=== PATIENT | female | born 1995 | race Caucasian/White ===

== ENCOUNTER 2023-02-16 13:57 | Emergency (ER) | payer MEDICAID ==
[~2023-02-16] VITALS: Ht 167.6 cm; Wt 86.2 kg
[2023-02-16 14:06] VITALS: BP_SYST 140
--- NOTE | 2023-02-16 14:14 | NUR ---
Placed in room 8 . Placed on phototypesetting equipment monitor, blood pressure machine and pulse oximeter. To gown for exam. Side rails up. Report given to
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
--- NOTE | 2023-02-16 14:22 | NUR ---
MD DR RAE AT BEDSIDE
[2023-02-16] MEDS ORDERED: LIDOCAINE 1% 10 MG/ML, 20 ML MDV INJ ONE (14:30)
[2023-02-16] MEDS ORDERED: BACITRACIN 1 GM OINT TP ONE ×2 (14:30→15:19)
[2023-02-16] MEDS ORDERED: IBUPROFEN 800 MG TABLET PO ONE (14:45)
--- NOTE | 2023-02-16 15:20 | NUR ---
[place] [facility] AT BEDSIDE INTERVIEWING PT
[2023-02-16 15:57] VITALS: BP_SYST 140
--- NOTE | 2023-02-16 16:01 | NUR ---
Patient given written and verbal discharge instructions and verbalizes understanding. ER MD DR RAE discussed with patient the results and treatment provided. Patient in stable condition. ID arm band removed. Patient educated on pain management and to follow up with PMD. Pain Scale . Opportunity for questions provided and answered. Medication side effect fact sheet provided.
== END 2023-02-16 16:01 | disposition home or self-care (01) ==
LOC: SED 13:57
DX: S01.81XA Laceration without foreign body of other part of head, initial encounter (principal); Z79.899 Other long term (current) drug therapy; Y04.0XXA Assault by unarmed brawl or fight, initial encounter; Y93.89 Activity, other specified; Y92.89 Other specified places as the place of occurrence of the external cause; Y99.8 Other external cause status
CPT/HCPCS: 70450-TC; 76376; 99284

== ENCOUNTER 2023-02-24 11:26 | Emergency (ER) | payer MEDICAID ==
[~2023-02-24] VITALS: Ht 165.1 cm; Wt 68.9 kg
[2023-02-24 11:32] VITALS: BP_SYST 120
[2023-02-24 11:52] VITALS: BP_SYST 120
== END 2023-02-24 11:46 | disposition home or self-care (01) ==
LOC: SED 11:26
DX: S01.81XD Laceration without foreign body of other part of head, subsequent encounter (principal); Z48.00 Encounter for change or removal of nonsurgical wound dressing; Z48.02 Encounter for removal of sutures; X58.XXXD Exposure to other specified factors, subsequent encounter; Y93.89 Activity, other specified; Y92.89 Other specified places as the place of occurrence of the external cause; Y99.8 Other external cause status
CPT/HCPCS: 99281

== ENCOUNTER 2023-04-20 17:22 | Emergency (ER) | payer MEDICAID ==
[~2023-04-20] VITALS: Ht 167.6 cm; Wt 81.6 kg
[2023-04-20 17:25] VITALS: BP_SYST 118; PULSE 73; RESP 18; TEMP 98.2; O2SAT 96
[2023-04-20] MEDS ORDERED: MEDR10TA72 PO (18:49)
[2023-04-20 19:01] LABS: COLOR,URINE YELLOW (YELLOW)
[2023-04-20 19:02] LABS: BILIRUBIN,URINE 2+ (NEGATIVE); CLARITY/URINE HAZY (CLEAR); GLUCOSE,URINE 0 (NEGATIVE); KETONES,URINE 3+ (NEGATIVE); PH,URINE 5.5 (5.0-8.0); PROTEIN URINE 2+ (NEGATIVE)
[2023-04-20 19:08] LABS: BLOOD, URINE 2+ (NEGATIVE)
[2023-04-20 19:09] LABS: LEUKOCYTE ESTERASE ,URINE TRACE (NEGATIVE); NITRITE, URINE NEGATIVE (NEGATIVE)
[2023-04-20 19:11] LABS: BACTERIA,URINE MODERATE /HPF (None Seen)
[2023-04-20 19:30] VITALS: BP_SYST 126; PULSE 60; RESP 18; TEMP 98.3; O2SAT 98
== END 2023-04-20 19:30 | disposition home or self-care (01) ==
LOC: SED 17:22
DX: N93.8 Other specified abnormal uterine and vaginal bleeding (principal); F12.90 Cannabis use, unspecified, uncomplicated; Z79.899 Other long term (current) drug therapy
CPT/HCPCS: 81000; 81025; 87086; 99283

== ENCOUNTER 2023-05-21 10:10 | Emergency (ER) | payer MEDICAID ==
[~2023-05-21] VITALS: Ht 167.6 cm; Wt 81.6 kg
[~2023-05-21 10:10] MED LIST: MEDR10TA72 PO
[2023-05-21 10:14] VITALS: BP_SYST 113; PULSE 88; RESP 18; TEMP 98.3; O2SAT 95
[2023-05-21] MEDS ORDERED: ACETAMINOPHEN 325 MG TABLET PO ONE (10:30)
[2023-05-21 11:30] VITALS: BP_SYST 113; PULSE 88; RESP 18; TEMP 98.3; O2SAT 95
== END 2023-05-21 11:40 | disposition home or self-care (01) ==
LOC: SED 10:10
DX: S60.221A Contusion of right hand, initial encounter (principal); Z79.899 Other long term (current) drug therapy; W22.8XXA Striking against or struck by other objects, initial encounter; Y93.89 Activity, other specified; Y92.89 Other specified places as the place of occurrence of the external cause; Y99.8 Other external cause status
CPT/HCPCS: 81025; 99283